=== PATIENT | female | born 1945 | race Caucasian/White ===

== ENCOUNTER 2021-02-01 12:46 | Emergency (ER) | payer MEDICARE, OTHER ==
[~2021-02-01] VITALS: Ht 165.1 cm; Wt 59.0 kg
[2021-02-01] MEDS ORDERED: PROZAC20 M5 PO (13:46)
[2021-02-01] MEDS ORDERED: ROSU5 PO (13:46)
[2021-02-01] MEDS ORDERED: MODAFINIL100 M4 PO (13:47)
[2021-02-01 13:52] LABS: BASOPHILS ABSOLUTE AUTO 0.01 K/mm3 (0.00-0.23); BASOPHILS PERCENT AUTO 0 % (0-2); EOSINOPHILS PERCENT AUTO 0 % (0-6); Hematocrit 37.9 % (33.0-51.0); Hemoglobin 12.8 g/dL (11.5-16.0); IMMATURE GRAN ABSOLUTE AUTO 0.01 K/mm3 (0.00-0.10); IMMATURE GRAN PERCENT AUTO 0 % (0-1); LYMPHOCYTES ABSOLUTE AUTO 0.54 K/mm3 (0.84-5.20); LYMPHOCYTES PERCENT AUTO 16 % (21-46); MONOCYTES PERCENT AUTO 6 % (4-13); Mean Corpuscular HGB 29.8 pg (26.0-34.0); Mean Corpuscular HGB Conc 33.8 g/dL (31.5-36.5); Mean Corpuscular Volume 88 fL (80-100); Mean Platelet Volume 10.5 fL (9.1-12.4); NEUTROPHILS ABSOLUTE AUTO 2.55 K/mm3 (1.96-9.15); NEUTROPHILS PERCENT AUTO 77 % (41-73); Platelet Count 145 K/mm3 (150-400); RDW Coefficient Variation 12.2 % (11.7-14.2); RDW Standard Deviation 39.5 fL (35.1-46.3); White Blood Cell Count 3.31 K/mm3 (4.00-11.30)
[2021-02-01 14:10] LABS: Alanine Aminotransfer (ALT/SGP 20 U/L (12-78); Albumin, Blood 3.5 g/dL (3.4-5.0); Albumin/Globulin Ratio 1.1 (0.8-1.8); Alk Phos 82 U/L (50-136); Anion Gap 9 mmol/L (6-16); Aspartate Aminotrans (AST/SGOT 27 U/L (12-37); Bilirubin, Total 0.3 mg/dL (0.1-1.0); Blood Urea Nitrogen 14 mg/dL (8-24); Bun/Creatinine Ratio 21.1 (12.0-20.0); CO2, Blood 24 mmol/L (21-32); Calcium, Blood 8.3 mg/dL (8.5-10.1); Chloride, Blood 99 mmol/L (98-108); Creatinine, Blood 0.66 mg/dL (0.40-1.00); Globulin, Blood 3.3 g/dL (2.2-4.0); Glomerular Filtration Rate >60 (60-); Glucose, Blood 104 mg/dL (70-99); Potassium, Blood 3.9 mmol/L (3.5-5.5); Sodium, Blood 132 mmol/L (136-145); Total Protein, Blood 6.8 g/dL (6.4-8.2)
[2021-02-01 15:49] LABS: SARS-Cov-2 (COVID-19) PCR, MMC POSITIVE (NEGATIVE)
== END 2021-02-01 16:22 | disposition home or self-care (01) ==
LOC: ER 12:46
PROVIDERS: Physician Assistant
DX: U07.1 COVID-19 (principal); Z20.822 Contact with and (suspected) exposure to COVID-19; Z79.899 Other long term (current) drug therapy
CPT/HCPCS: 71045; 80053; 85025; 93005; 93010; 99284-25; U0004

== ENCOUNTER 2024-01-24 13:13 | Day surgery (SDC) | payer OTHER ==
[~2024-01-24] VITALS: Ht 165.1 cm; Wt 60.1 kg
[~2024-01-24 13:13] MED LIST: Balanced Salt Epinephrine Irrigation Solution 500 mL IR SCH; FentaNYL Citrate 50 MCG/ML 2 ML Injection ONE; Lidocaine HCl/Pf 1% 5 ML VIAL XX SCH; MODAFINIL100 M4 PO; Midazolam HCl 1MG / ML 2ML Vial ONE; Moxifloxacin HCL 0.5 MG/0.1 ML 0.4MLSYR LEFTEYE SCH; NS 500 ML IV ONE; PHENYLEPHRINE\\TROPICAMIDE\\TETRACAINE OPHTHALMIC DILATING SOLN LEFTEYE PRN; PROZAC20 M5 PO; Povidone-Iodine 450 DROP/30 ML Solution LEFTEYE SCH; ROSU5 PO
[2024-01-24] MEDS ORDERED: LATANOPROST2.5 M3 (13:30)
[2024-01-24] MEDS ORDERED: HYOSCYAMINE0.125 MG SL (13:31)
[2024-01-24] MEDS ORDERED: NS 500 ML IV ONE (13:42)
[2024-01-24 14:41] VITALS: BP 142/47
== END 2024-01-24 14:52 | disposition home or self-care (01) ==
LOC: ORSCSDS 13:13
PROVIDERS: Student in an Organized Health Care Education/Training Program
PROC: 08933ZZ Drainage of Left Anterior Chamber, Percutaneous Approach (ICD-10-PCS; principal; 2024-01-24 14:30)
PROC: 08RK3JZ Replacement of Left Lens with Synthetic Substitute, Percutaneous Approach (ICD-10-PCS; principal; 2024-01-24 14:30)
DX: H25.813 Combined forms of age-related cataract, bilateral (principal); H40.1121 Primary open-angle glaucoma, left eye, mild stage; K21.9 Gastro-esophageal reflux disease without esophagitis; F32.A Depression, unspecified; Z79.899 Other long term (current) drug therapy
CPT/HCPCS: J2250; J3010; J7040; V2632

== ENCOUNTER 2024-02-07 13:04 | Day surgery (SDC) | payer OTHER ==
[~2024-02-07] VITALS: Ht 165.1 cm; Wt 59.7 kg
[~2024-02-07 13:04] MED LIST changes: -FentaNYL Citrate 50 MCG/ML 2 ML Injection ONE; +HYOSCYAMINE0.125 MG SL; +LATANOPROST2.5 M3; -Midazolam HCl 1MG / ML 2ML Vial ONE; -Moxifloxacin HCL 0.5 MG/0.1 ML 0.4MLSYR LEFTEYE SCH; +Moxifloxacin HCL 0.5 MG/0.1 ML 0.4MLSYR RIGHTEYE SCH; -PHENYLEPHRINE\\TROPICAMIDE\\TETRACAINE OPHTHALMIC DILATING SOLN LEFTEYE PRN; +PHENYLEPHRINE\\TROPICAMIDE\\TETRACAINE OPHTHALMIC DILATING SOLN RIGHTEYE PRN; -Povidone-Iodine 450 DROP/30 ML Solution LEFTEYE SCH; +Povidone-Iodine 450 DROP/30 ML Solution RIGHTEYE SCH
--- NOTE | 2024-02-07 13:27 | NUR ---
02/07/24 1327 Lucero Brian AT 1321 PLEDGET AT 1322
[2024-02-07] MEDS ORDERED: NS 500 ML IV ONE (13:29)
[2024-02-07] MEDS ORDERED: Midazolam HCl 1MG / ML 2ML Vial ONE (13:52)
[2024-02-07 14:22] VITALS: BP 131/51
== END 2024-02-07 14:37 | disposition home or self-care (01) ==
LOC: ORSCSDS 13:04
PROVIDERS: Student in an Organized Health Care Education/Training Program
PROC: 08923ZZ Drainage of Right Anterior Chamber, Percutaneous Approach (ICD-10-PCS; principal; 2024-02-07 14:30)
PROC: 08RJ3JZ Replacement of Right Lens with Synthetic Substitute, Percutaneous Approach (ICD-10-PCS; principal; 2024-02-07 14:30)
DX: H25.811 Combined forms of age-related cataract, right eye (principal); H40.1210 Low-tension glaucoma, right eye, stage unspecified; Z96.1 Presence of intraocular lens; K21.9 Gastro-esophageal reflux disease without esophagitis; F32.A Depression, unspecified; Z79.899 Other long term (current) drug therapy
CPT/HCPCS: J2250; J7040; V2632